=== PATIENT | male | born 1960 | race Caucasian/White ===

== ENCOUNTER 2019-06-30 05:35 | Day surgery (SDC) | payer BC ==
[~2019-06-30] VITALS: Ht 167.6 cm; Wt 90.9 kg
[2019-06-30] VITALS (16 sets, daily range): BP systolic 92–118; BP diastolic 65–81; PULSE 61–79; TEMP 97.9
[2019-06-30 06:32] LABS: HEMATOCRIT 46.7 % (42.0-52.0); HEMOGLOBIN 15.5 g/dl (13.5-18.0); MEAN CELL VOLUME 91 fl (80.0-100.0); MEAN CORPUSCULAR HEMOGLOBIN 30 pg (27.0-31.0); MEAN CORPUSCULAR HGB CONC 33 g/dl (33.0-37.0); MEAN PLATELET VOLUME 10.7 fl (7.4-10.4); PLATELET COUNT 222 K/mm3 (130-400); RED BLOOD COUNT 5.11 M/mm3 (4.20-5.60); REDCELL DISTRIBUTION WIDTH-CV 12.5 % (11.5-14.5)
[2019-06-30 06:45] LABS: CALCIUM 8.9 mg/dL (8.4-10.2); CREATININE, serum 1.24 (0.66-1.25)
[2019-06-30 06:51] LABS: INR 1.1 (0.8-3.0); PROTHROMBIN TIME 12.3 SECONDS (9.7-12.8)
[2019-06-30 06:54] LABS: PARTIAL THROMBOPLASTIN TIME 27.7 SECONDS (26.0-37.0)
[2019-06-30] MEDS ORDERED: COREG 3.123.125 MG/T PO (07:30)
[2019-06-30] MEDS ORDERED: LASIX 40MG TABL40 MG PO (07:30)
[2019-06-30] MEDS ORDERED: ZESTRIL 5MG5 MG PO (07:30)
[2019-06-30] MEDS ORDERED: NITRO-DUR0.2 MG/PAT TD (07:31)
[2019-06-30] MEDS ORDERED: ASPIRIN 81M81 MG/TA2 PO (07:31)
--- NOTE | 2019-06-30 09:03 | NUR ---
SEE MERGE FOR MEDICATION ADMINISTRATION TIMES AND INTRA AND POST SEDATION ASSESSMENTS.
--- NOTE | 2019-06-30 14:51 | NUR ---
Discharge instructions given to pt.Pt verbalizes understanding.INT removed,catheter tip intact.Pt escorted out via wheelchair by this nurse.
== END 2019-06-30 16:07 | disposition home or self-care (01) ==
LOC: COL.CAR 05:35
PROVIDERS: Internal Medicine Cardiovascular Disease
DX: I42.9 Cardiomyopathy, unspecified (principal); I50.21 Acute systolic (congestive) heart failure; Z79.82 Long term (current) use of aspirin; Z80.6 Family history of leukemia; Z88.2 Allergy status to sulfonamides
CPT/HCPCS: J1644; J2250; J3010; Q9967

== ENCOUNTER 2019-10-14 10:20 | Day surgery (SDC) | payer BC ==
[2019-10-14] VITALS (10 sets, daily range): BP systolic 97–130; BP diastolic 25–76; PULSE 54–70; TEMP 97.6–99
[~2019-10-14] VITALS: Ht 167.6 cm; Wt 91.0 kg
[~2019-10-14 10:20] MED LIST: ASPIRIN 81M81 MG/TA2 PO; COREG 3.123.125 MG/T PO; LASIX 40MG TABL40 MG PO; NITRO-DUR0.2 MG/PAT TD; ZESTRIL 5MG5 MG PO
[2019-10-14] MEDS ORDERED: COREG 6.256.25 MG/TA PO (10:48)
[2019-10-14] MEDS ORDERED: LASIX 20MG TABL20 MG PO (10:48)
[2019-10-14 11:26] LABS: HEMOGLOBIN 14.7 g/dl (13.5-18.0); MEAN CELL VOLUME 92 fl (80.0-100.0); MEAN CORPUSCULAR HEMOGLOBIN 32 pg (27.0-31.0); MEAN CORPUSCULAR HGB CONC 34 g/dl (33.0-37.0); MEAN PLATELET VOLUME 10.9 fl (7.4-10.4); PLATELET COUNT 216 K/mm3 (130-400); RED BLOOD COUNT 4.66 M/mm3 (4.20-5.60); REDCELL DISTRIBUTION WIDTH-CV 13.2 % (11.5-14.5)
[2019-10-14 11:34] LABS: INR 1.1 (0.8-3.0); PROTHROMBIN TIME 12.2 SECONDS (9.7-12.8)
[2019-10-14 11:42] LABS: CALCIUM 8.9 mg/dL (8.4-10.2); CREATININE, serum 1.05 (0.66-1.25); POTASSIUM 4.1 mmol/L (3.4-5.0)
--- NOTE | 2019-10-14 13:16 | NUR ---
SEE MERGE DOCUMENTATION FOR MEDICATION ADMINISTRATION TIMES AND INTRA/POST PROCEDURE SEDATION ASSESSMENTS.
--- NOTE | 2019-10-14 15:00 | NUR ---
Patient to room 352 from medical lab technologist. Patient A&O, drowsy. VSS. Denies pain and discomfort. IV CDI. Oriented patient and family a the bedside to call light, bed and location. Left incision site, CDI. Left arm in sling. CMS WNL. Monitoring post op VS. No further needs expressed from patient. Call light within reach
--- NOTE | 2019-10-14 18:06 | NUR ---
Patient resting in bed. Stated he was tired. A&Ox3, easily awakened. VSS. IV CDI. Left chest incision CDI. Ice applied, sling on. Patient instructed to call nursing staff for assistance with ambulation. No further needs expressed from patient. Call light within reach
--- NOTE | 2019-10-14 18:25 | NUR ---
Patient to room 317 from ED ny wheelchair. A&Ox3. VSS. IV CDI, fluids infusing. Reporting pain in abdomen 12/04. Patient still in street clothes, refusing to change in gown at the moment. Detox protocol in place. Oriented patient to location and call light. No further needs expressed from patient. Instructed patient to call nursing staff for assistance as needed. Call light within reach
--- NOTE | 2019-10-14 20:00 | NUR ---
Received report from CONSTANTINO De La Cruz. Pt resting in bed upon entry, NAD. Denies any pain at this time. Slight discomfort to ICD placement site to Left upper chest. Dressing in place w/o s/s of complications. LA in sling with ice bag in place. HOB elevated 30. Tele monitor in place. Meds administered as ordered. Needs met at this time. Call light within reach.
[2019-10-15 03:26] VITALS: BP 112/70; PULSE 59; TEMP 97.7
--- NOTE | 2019-10-15 05:59 | NUR ---
Pt was uneventful during this shift. No complaints of pain. LA remained in sling, HOB elevated. Meds administered. Call light within reach.
--- NOTE | 2019-10-15 06:34 | NUR ---
[employer] interrogation performed and data sent. Garth notified.
--- NOTE | 2019-10-15 07:30 | NUR ---
Report received from CONSTANTINO Beatty. PT in bed resting, denies needs, LUE in sling, will continue to monitor.
--- NOTE | 2019-10-15 07:32 | NUR ---
Report given CONSTANTINO Perez.
[2019-10-15 07:37] LABS: BASO # 0.1 (0.0-0.2); BASO % 0.5 % (0.0-2.0); EOS # 0.3 (0.0-0.7); EOS % 3.5 % (0-4.0); GRAN # 6.3 (1.4-6.5); GRAN % 66.4 % (42.2-75.2); HEMATOCRIT 42.8 % (42.0-52.0); HEMOGLOBIN 14.4 g/dl (13.5-18.0); LYMPH # 1.9 (1.2-3.4); LYMPH % 19.9 % (20.0-51.0); MEAN CELL VOLUME 93 fl (80.0-100.0); MEAN CORPUSCULAR HEMOGLOBIN 31 pg (27.0-31.0); MEAN CORPUSCULAR HGB CONC 34 g/dl (33.0-37.0); MEAN PLATELET VOLUME 11.1 fl (7.4-10.4); MONO # 0.9 (0.1-0.6); MONO % 9.3 % (1.7-9.3); PLATELET COUNT 194 K/mm3 (130-400); RED BLOOD COUNT 4.62 M/mm3 (4.20-5.60); REDCELL DISTRIBUTION WIDTH-CV 13.2 % (11.5-14.5)
[2019-10-15 07:55] LABS: ALBUMIN 3.9 gm/dL (3.5-5.0); BILIRUBIN,TOTAL 0.9 mg/dL (0.0-1.0); CALCIUM 8.5 mg/dL (8.4-10.2); CREATININE, serum 1.02 (0.66-1.25); POTASSIUM 4.1 mmol/L (3.4-5.0); TOTAL PROTEIN 7.3 gm/dL (6.4-8.2)
[2019-10-15 08:00] VITALS: BP 127/82; PULSE 71; TEMP 97.8
[2019-10-15 08:22] LABS: THYROID STIMULATING HORMONE 1.07 uIU/mL (0.465-4.680)
[2019-10-15 08:26] VITALS: BP 136/81; PULSE 60; TEMP 97.5
--- NOTE | 2019-10-15 08:43 | NUR ---
Assessmetn charted. Pt doing well, some soreness to LUE, will provide ice. Dressing over site is CDI. LUE in sling. INT to LH. Denies needs, anticipating discharge, will continue to monitor.
[2019-10-15 12:11] VITALS: BP 118/74; PULSE 60; TEMP 97.7
[2019-10-15] MEDS ORDERED: CEPHALEXIN500 M1 PO (13:00)
--- NOTE | 2019-10-15 13:42 | NUR ---
Plan: Plans to return home with Faustina . Assessment: SW met with patient about DC. Patient reports that he reisdes in [facility]. Patient reports that his PCP is Bronson Nichols at the [facility]. Patient reports that he obtains his medications at [facility] in [facility] without issue. Patient reports that he has a pacemaker but no other DME. Patient reports that he has transportation home and that his care was great. Client denies having a DPOA and or needing home health services. ACtion: SW educated on services and community supports. No additional needs identified.
--- NOTE | 2019-10-15 14:00 | NUR ---
Discharge teaching completed at this time. INT removed, tip intact. Reviewed discharge packet, restrictions on LUE, recommendatons for ice and sling use. Discharge completed, escorted out by myself, left with all belongings, to drive home, criteria met.
== END 2019-10-15 14:05 | disposition home or self-care (01) ==
LOC: COL.CAR 10:20 → MEDICAL 15:55 → COL.CAR 10-15 14:05
PROVIDERS: Internal Medicine Cardiovascular Disease
DX: I50.22 Chronic systolic (congestive) heart failure (principal); I42.8 Other cardiomyopathies; Z79.82 Long term (current) use of aspirin; Z11.59 Encounter for screening for other viral diseases
CPT/HCPCS: OP; C1721; C1769; C1777; C1894; J0690; J2250; J3010; J7030